=== PATIENT | female | born 1995 | race Caucasian/White ===

== ENCOUNTER 2017-05-23 08:36 | Emergency (ER) | payer MEDICAID, OTHER ==
[2017-05-23] VITALS (8 sets, daily range): BP systolic 135; BP diastolic 75; PULSE 51–79; RESP 18; TEMP 98.2
[~2017-05-23 08:36] MED LIST: CEPH-460 PO; PREN29TA PO; ZITHTAB PO; ZOFR4TAB3 SL
[2017-05-23] MEDS ORDERED: LACTATED RINGER'S 1000 ML INJ 1,000 ML IV SCH (08:44)
--- NOTE | 2017-05-23 08:58 | PD ---
HPI Chief Complaint Intractable nausea and vomiting Date Seen: May 23, 2017 Time Seen: 08:47 Travel History International Travel<30 Days: No Contact w/Intl Traveler<30Days: No History of Present Illness HPI Patient is a 21 year old at 35 and 3/7 weeks gestation who presents to the OB ED with nausea and vomiting x 3 days. She denies leakage of fluid, vaginal bleeding, and contractions. She feels baby moving regularly. She denies HOSKINS/N/V/D /fever/sick contacts/SOB/calf pain/dizziness/seeing spots. OB care is with Dr. Whitt (previously with Dr. Sultana). Does note she plans to deliver at [facility]. History Past Medical History Medical History: Denies Significant Hx Obstetric History Obstetric History Hyperemesis gravidarum Past Surgical History Surgical History: No Previous Surgery Family History Family History: Negative Social History Alcohol Use: No Tobacco Use: No Substance Abuse: No Allergies-Medications (Allergen,Severity, Reaction): Coded Allergies: No Known Allergies (Verified Adverse Reaction, Unknown, 05/23/17) Home Meds Active Scripts Promethazine Supp (Phenergan Supp) 25 Mg Supp, 25 MG RECTAL Q4H Y for NAUSEA OR VOMITING, #6 SUPP 0 Refills Prov:Yamini Aguayo MD R2 05/23/17 Promethazine (Phenergan) 25 Mg Tablet, 25 MG PO Q6H Y for NAUSEA OR VOMITING, # 60 TAB 0 Refills Prov:Yamini Aguayo MD R2 05/23/17 Cephalexin (Keflex) 500 Mg Cap, 500 MG PO Q6H for Infection, #28 CAP 0 Refills Prov:Ramonita Aaron MD 05/22/17 Ondansetron Odt (Zofran Odt) 4 Mg Tab, 4 MG SL Q6HR Y for Nausea/Vomiting, #30 TAB 0 Refills Prov:Ramonita Aaron MD 05/22/17 Reported Medications Azithromycin (Zithromax Z-Bhupinder) 250 Mg Dspk, 250 MG PO DIRECTED for Infection , #1 DSPK 0 Refills 500 MG (2 tabs) day 1, then 1 tab days 2-5. 05/22/17 Vit-Iron Carbonyl ( Plus Iron 29-1 mg) 29 Mg Iron-1 Mg Tab, 1 TAB PO DAILY for Nutritional Supplement, #30 TAB 0 Refills 05/22/17 Discontinued Reported Medications Diazepam (Valium) 5 Mg Tab, 5 MG PO HS Y for SLEEP, TAB 08/07/13 Discontinued Scripts Cephalexin (Keflex) 500 Mg Cap, 500 MG PO Q12H for Infection, #10 CAP 0 Refills Prov:Kateryna Welch DO 03/01/17 Ondansetron Odt (Zofran Odt) 4 Mg Tab, 4 MG SL Q8HR Y for Nausea/Vomiting, #15 TAB 0 Refills Prov:Kateryna Welch DO 03/01/17 Ondansetron Odt (Zofran Odt) 4 Mg Tab, 4 MG SL Q6HR Y for Nausea/Vomiting, #30 TAB 0 Refills Prov:Tomas Calles MD 01/13/17 Tramadol Hcl (Ultram) 50 Mg Tab, 50-100 MG PO Q6, #20 TAB FOR PAIN Prov:Marlon Hernandez MD 08/07/13 Diclofenac Sod (Voltaren) 50 Mg Tabec, 50 MG PO TID, #21 TAB Prov:Marlon Hernandez MD 08/07/13 Review of Systems General / Constitutional: No: Fever, Chills Eyes: No: Blurred Vision, Visual changes HENT: No: Headaches, Vertigo Cardiovascular: No: Chest Pain or Discomfort, Palpitations Respiratory: No: Cough, Short of Breath Gastrointestinal: Nausea, Vomiting, No: Diarrhea, Abdominal Pain Genitourinary: No: Urgency, Frequency, Dysuria Musculoskeletal: No: Weakness, Edema Skin: No Rash, No Dryness Neurologic: No: Weakness, Syncope Psychiatric: No: Anxiety, Depression Physical Exam Narrative GENERAL: Well-nourished, well-developed patient. SKIN: Warm and dry. No rashes. HEAD: Normocephalic and atraumatic. EYES: No scleral icterus. No injection or drainage. ENT: No nasal drainage noted. Mucous membranes pink. Airway patent. Throat normal. NECK: Supple, trachea midline. No JVD. CARDIOVASCULAR: Regular rate and rhythm without murmurs, gallops, or rubs. RESPIRATORY: Breath sounds equal bilaterally. No accessory muscle use. ABDOMEN/GI: Abdomen soft, non-tender, bowel sounds present, no rebound, no guarding Gravid to [-] weeks size Fundal Height: [-] GENITOURINARY: deferred Uterine Contractions: absent FHT's: Category: 1 Baseline:140 Reactive:160s Variability: mod Decels: absent EXTREMITIES: No cyanosis or edema. BACK: Nontender without obvious deformity. No CVA tenderness. NEUROLOGICAL: Awake and alert. Motor and sensory grossly within normal limits. Five out of 5 muscle strength in all muscle groups. Normal speech. Data Data Vital Signs Reviewed: Yes Orders Orders Vital Signs (Adult) .ON ADMISSION (05/23/17 08:44) ^ Labor Status (05/23/17 08:44) ^ Non Stress Test (05/23/17 08:44) ^ Hydration (05/23/17 08:44) Lactated Ringer's 1000 Ml Inj (Lr 1000 M (05/23/17 08:44) MDM Medical Record Reviewed: Yes Narrative Course / MDM 21 year old at 35 and 3/7 weeks presenting with nausea and vomiting. No vomiting in ED, IVF given, d/c home with close f/u with her doctor. Nausea and Vomiting of : Hyperemesis gravidarum early in Labs from other ED showing dehydration IVF bolus given in ED - NS Zofran 4mg IV in route No vomiting in the ED Phenergan 25 mg PO q6hr #60 script printed Phenergan 25 mg suppository #6 script printed Intrauterine : Category 1 tracing. No CTX. Routine PNC recommended DW Dr. Wen Diagnosis Diagnosis: Primary Impression: Vomiting affecting , antepartum Disposition: 01 DISCHARGE HOME Condition: Stable Scripts Promethazine Supp (Phenergan Supp) 25 Mg Supp 25 MG RECTAL Q4H Y for NAUSEA OR VOMITING, #6 SUPP 0 Refills Prov: Yamini Aguayo MD R2 05/23/17 Promethazine (Phenergan) 25 Mg Tablet 25 MG PO Q6H Y for NAUSEA OR VOMITING, #60 TAB 0 Refills Prov: Yamini Aguayo MD R2 05/23/17 Patient Instructions: Nausea and Vomiting in (ED) Yamini Aguayo MD R2 May 23, 2017 08:58
[2017-05-23] MEDS ORDERED: ONDANSETRON HCL 4 MG/2 ML VIAL IV PUSH PRN (09:00)
[2017-05-23] MEDS ORDERED: SODIUM CHLOR 0.9% 1000 ML INJ 1,000 ML IV ONE (09:15)
[2017-05-23] MEDS ORDERED: CALCIUM CARBONATE 500 MG CHEWABLE TAB CHEW ONE (09:15)
[2017-05-23] MEDS ORDERED: DEXTROSE 5%-LACTATED RING INJ 1,000 ML IV SCH ×2 (09:15→10:30)
[2017-05-23] MEDS ORDERED: PROM25TA10 PO ×2 (09:57→10:07)
[2017-05-23] MEDS ORDERED: PROM1SUP7 RECTAL ×2 (09:57→10:07)
== END 2017-05-23 10:45 | disposition home or self-care (01) ==
LOC: HOBED 08:36
DX: O21.2 Late vomiting of pregnancy (principal); O21.1 Hyperemesis gravidarum with metabolic disturbance; R82.90 Unspecified abnormal findings in urine; Z3A.35 35 weeks gestation of pregnancy
CPT/HCPCS: 59025; 80053; 81001; 82270; 83605; 83690; 85025; 87086; 96361; 96365; 96366; 96375; 96376; 99284; C9113; J1200; J2765; J7030